=== PATIENT | female | born 1950 | race Caucasian/White ===

== ENCOUNTER → 2017-03-21 | Outpatient (CLI) | payer MEDICARE, MEDICAID ==
--- NOTE | 2017-03-21 13:26 | WOMENS IMAGING REPORT ---
EXAM DESCRIPTION: BILAT SCREENING MAMMO W/CAD COMPLETED DATE/TIME: 03/21/2017 9:44 am REASON FOR STUDY: ROUTINE SCREENING; Z12.31 Z12.31 ENCNTR SCREEN MAMMOGRAM FOR MALIGNANT NEOPLASM O F JOSEFA COMPARISON: None. TECHNIQUE: Standard craniocaudal and mediolateral oblique views of each breast recorded using Godengoa l acquisition. LIMITATIONS: None. FINDINGS: No masses, calcifications or architectural distortion. No areas of suspicion. Read with the assistance of CAD. .[facility] - R2 Cenova Version 1.3 .[facility] Imaging - R2 Cenova Version 1.3 .[facility] Imaging - R2 Cenova Version 2.4 .[facility] - R2 Cenova Version 2.4 .[facility] - R2 Deck Lid Fitter Version 9.2 IMPRESSION: NORMAL MAMMOGRAM. BIRADS 1. BREAST DENSITY: b. There are scattered areas of fibroglandular density. BIRAD: 1 NEGATIVE RECOMMENDATION: ROUTINE SCREENING COMMENT: The patient has been notified of the results by letter per SA requirements. Additional no tification policies are in place for contacting patient with suspicious or incomplete findings. Quality ID #[id number]: The [place] [employer] recommends an annual screening mammogram for women aged 40 years or over. This facility utilizes a reminder system to ensure that all patients receive reminder letters, and/or direct phone calls for appointments. This includes reminders for routine scr eening mammograms, diagnostic mammograms, or other Breast Imaging Interventions when appropriate. Th is patient will be placed in the appropriate reminder system. The [place] [employer] (ACR) has developed recommendations for screening MRI of the breast s in certain patient populations, to be used in conjunction with mammography. Breast MRI surveillanc e may be appropriate for women with more than 20% lifetime risk of developing breast cancer as deter mined by genetic testing, significant family history of the disease, or history of mantle radiation f or Hodgkins Disease. ACR Practice Guidelines 2008. TECHNICAL DOCUMENTATION: FINDING NUMBER: (1) ASSESSMENT: (1) JOB ID: [id number] [employer]- All Rights Reserved
== END ==
LOC: WI 09:29
PROVIDERS: ATTEND Family Medicine
DX: Z12.31 Encounter for screening mammogram for malignant neoplasm of breast (principal)
CPT/HCPCS: 77067; G0202

== ENCOUNTER → 2018-03-30 | Outpatient (CLI) | payer MEDICARE, MEDICAID ==
--- NOTE | 2018-03-30 15:51 | WOMENS IMAGING REPORT ---
EXAM DESCRIPTION: 3D SCREENING MAMMO BILAT COMPLETED DATE/TIME: 03/30/2018 2:28 pm REASON FOR STUDY: SCREENING MAMMO Z12.31 ENCNTR SCREEN MAMMOGRAM FOR MALIGNANT NEOPLASM OF JOSEFA COMPARISON: 03/21/2017 TECHNIQUE: Standard craniocaudal and mediolateral oblique views of each breast recorded using digita l acquisition and breast tomosynthesis. LIMITATIONS: None. FINDINGS: No masses, calcifications or architectural distortion. No areas of suspicion. Read with the assistance of CAD. .[facility] - R[facility] Cenova Version 1.3 .[facility] Imaging - R2 Cenova Version 1.3 .[facility] Imaging - R2 Cenova Version 2.4 .[facility] - R2 Cenova Version 2.4 .[facility] - R2 Costume Shop Manager Version 9.2 IMPRESSION: NORMAL MAMMOGRAM. BIRADS 1. BREAST DENSITY: b. There are scattered areas of fibroglandular density. BIRAD: 1 NEGATIVE RECOMMENDATION: ROUTINE SCREENING Please continue yearly bilateral screening tomosynthesis in March 2019 COMMENT: The patient has been notified of the results by letter per SA requirements. Additional no tification policies are in place for contacting patient with suspicious or incomplete findings. Quality ID #[id number]: The [employer] [employer] recommends an annual screening mammogram for women aged 40 years or over. This facility utilizes a reminder system to ensure that all patients receive reminder letters, and/or direct phone calls for appointments. This includes reminders for routine scr eening mammograms, diagnostic mammograms, or other Breast Imaging Interventions when appropriate. Th is patient will be placed in the appropriate reminder system. The [place] [employer] (ACR) has developed recommendations for screening MRI of the breast s in certain patient populations, to be used in conjunction with mammography. Breast MRI surveillanc e may be appropriate for women with more than 20% lifetime risk of developing breast cancer as deter mined by genetic testing, significant family history of the disease, or history of mantle radiation f or Hodgkins Disease. ACR Practice Guidelines 2008. DBT Technology DBT is a type of tomographic mammography. With conventional mammography, overlapping breast tissue ma y make lesions difficult to detect, even with good compression. DBT uses an x-ray tube that rotates a round the breast, taking images at different angles. These images are then combined to create thin sl ices of the breast that the radiologist can view as a 3D reconstruction. The [place] unit can perform full-field digital mammograms (2D imaging); or DBT (3D imaging); or both, in a combination mode that quickly performs both the mammogram and the tomosynthesis scan while the breast is still compressed. PQRS 6045F: Fluoroscopic imaging is not utilized for breast tomosynthesis. TECHNICAL DOCUMENTATION: FINDING NUMBER: (1) ASSESSMENT: (1) JOB ID: [id number] [employer]- All Rights Reserved Reading location - IP/workstation name: [facility]-RR2
== END ==
LOC: WI 13:34
PROVIDERS: ATTEND Family Medicine
DX: Z12.31 Encounter for screening mammogram for malignant neoplasm of breast (principal)
CPT/HCPCS: 77063; 77067

== ENCOUNTER 2019-10-14 06:22 | Day surgery (SDC) | payer MEDICARE, MEDICAID ==
[~2019-10-14 06:22] MED LIST: BUPIVACAINE HCL 0.75% INJ/PF (7.5 MG/1 ML) 10 ML SDV OD PRN; DORZOLAMIDE HCL 2%/TIMOLOL MALEAT 0.5% OPH SOLN 10 ML OD PRN; KETOROLAC TROMETHAMINE 0.45% 4 DROP/0.4 ML DROPERETTE OD PRN; LIDOCAINE 4% INJ/PF (40 MG/ML) 5 ML AMPUL OD PRN; TETRACAINE HCL 0.5% OPH SOLN 0.6 ML DROPERETTE OD PRN
[2019-10-14] MEDS ORDERED: LIDOCAINE 1% INJ-PF (10 MG/ML) 30 ML SDV ONE (06:57)
[2019-10-14] MEDS ORDERED: ONDANSETRON HCL INJ/PF 4 MG/2 ML SDV ONE (07:00)
[2019-10-14] MEDS ORDERED: MIDAZOLAM 2 MG/2 ML INJ ONE (07:00)
[2019-10-14] MEDS ORDERED: FENTANYL CITRATE INJ/PF 100 MCG/2 ML AMPUL ONE (07:00)
[2019-10-14] MEDS: TETRACAINE HCL 0.5% OPH SOLN 4 ML OD PRN ×2 (07:06→07:27)
[2019-10-14] MEDS: CYCLOPENTOLATE 0.2%/PHENYLEPHRINE 1% OPH SOLN 2 ML OD PRN ×3 (07:07→07:26)
[2019-10-14] MEDS: BESIFLOXACIN HCL 0.6% OPH SUSP 5 ML BOTTLE OD PRN ×4 (07:07→07:59)
[2019-10-14] MEDS: TROPICAMIDE 1% OPH SOLN 15 ML OD PRN ×3 (07:07→07:26)
[2019-10-14] MEDS: CHONDR SU A NA/HYALUR INTRAOC KIT (SURGICARE) ONE ×2 (07:45)
[2019-10-14] MEDS: EPINEPHRINE INJ/PF 1 MG/1 ML AMPULE ONE ×2 (07:45)
--- NOTE | 2019-10-14 10:58 | Operative Report ---
Operative Report-[facility] Operative Report: DATE OF SURGERY: 10/14/2019 PREOPERATIVE DIAGNOSIS: CATARACT, RIGHT EYE. POSTOPERATIVE DIAGNOSIS: CATARACT, RIGHT EYE. PROCEDURE PERFORMED: PHACOEMULSIFICATION WITH POSTERIOR CHAMBER INTRAOCULAR LENS, RIGHT EYE. Intraocular Lens Model : SN 60 WF 19.5 Total Phaco Time: 9.77 CDE SURGEON: BHARATHI GRANT MD ANESTHESIA: TOPICAL WITH MAC. INDICATIONS FOR SURGERY: Difficulty reading road signs and small print. PROCEDURE: The patient was brought to the Operating Room and placed on the operative table. Following tetracaine drops, topical anesthesia was administered. This consisted of instrument wipe pledgets soaked in a solution of 4% Xylocaine mixed with 0.75% Marcaine in a 1:2 ratio. A 2 x 1 cm pledget was placed in the superior fornix. A 1 x 1 cm pledget was placed in the inferior fornix. The eye was patched shut for 5 minutes. The patch was removed. The eye was sterilely prepped and draped in the usual manner. Lid speculum was placed in the eye. The pledgets were removed. 4-0 black silk sutures were placed around the superior and the inferior rectus muscles to be used as traction. A conjunctival peritomy was made at the 10 o'clock position. Hemostasis was obtained with bipolar cautery. A posterior limbal groove was created using a crescent knife and dissected anteriorly towards the cornea. A sharp point blade was used to create a paracentesis site at the 2 o'clock position. 0.2 cc non preserved Lidocaine was injected into the anterior chamber. A 2.4 mm keratome was used to enter the anterior chamber through the groove. Viscoelastic was injected into the anterior chamber. An anterior capsulotomy was performed using Utrata forceps in a capsulorrhexis fashion. Hydrodissection and hydrodelineation were performed. Phacoemulsification was performed in [id number] technique. Following this, the I/A unit was used to remove residual cortex. Viscoelastic was injected into the capsular bag. The Intraocular lens was placed in the capsular bag. The I/A unit was used to remove residual viscoelastic. The wound was seen to be watertight under high and low pressure, and no sutures were placed. The intraocular lens was well centered. The pressure was adjusted in the eye to normal pressure. The 4-0 black silk sutures and lid speculum were removed. The eye was shielded after Besivance. prednisolone, and Cosopt drops were placed. The patient tolerated the procedure well and was sent to the Recovery Room in good condition.
== END 2019-10-14 08:39 | disposition home or self-care (01) ==
LOC: SC 06:22
PROVIDERS: ATTEND Ophthalmology
DX: H25.813 Combined forms of age-related cataract, bilateral (principal); E05.90 Thyrotoxicosis, unspecified without thyrotoxic crisis or storm; J45.909 Unspecified asthma, uncomplicated; Z87.891 Personal history of nicotine dependence; Z88.0 Allergy status to penicillin; Z88.2 Allergy status to sulfonamides; Z91.040 Latex allergy status; Z79.51 Long term (current) use of inhaled steroids
CPT/HCPCS: 66984; 00142; V2632; J2250; J3490 ×5; A9270; J0171; J3010; J2405; 142

== ENCOUNTER → 2019-11-02 | Outpatient (CLI) | payer MEDICARE, MEDICAID ==
--- NOTE | 2019-11-02 15:01 | WOMENS IMAGING REPORT ---
EXAM DESCRIPTION: BONE DENSITY HIP/SPINE COMPLETED DATE/TIME: 11/02/2019 1:46 pm REASON FOR STUDY: M81.8 OTHER OSTEOPOROSIS WITHOUT CURRENT PATHOLOGICAL FRACTURE Z12.31 ENCNTR SCRE EN MAMMOGRAM FOR MALIGNANT NEOPLASM OF JOSEFA Z78.0 ASYMPTOMATIC MENOPAUSAL STATE M81.8 OTHER OSTEOPOR OSIS WITHOUT CURRENT PATHOLOGICAL FRACTU COMPARISON: None. TECHNIQUE: Dual-Energy X-ray Absorptiometry (DEXA) of the AP Spine and Hip. LIMITATIONS: None. FINDINGS: LUMBAR SPINE: The bone mineral density (BMD) measured from L1-L4 in the AP projection correlates with a T-score of -2.3, which is osteopenia as defined by the World Health Organization. BMD Change vs Baseline: N/A HIP: The bone mineral density (BMD) measured in the left hip correlates with a T-score of -1.3 in the femo ral neck, which is osteopenia as defined by the World Health Organization. BMD Change vs Baseline: N/A 10 year Fracture Risk Assessment: Major Osteoporotic Fracture: 9% Hip Fracture: 1.1% IMPRESSION: 1. LUMBAR SPINE WHO CLASSIFICATION: Osteopenia 2. HIP WHO CLASSIFICATION: Osteopenia OVERALL ASSESSMENT: WHO CLASSIFICATION: Osteopenia COMMENT: The World Health Organization defines low BMD as follows: T-score: Normal: Greater than -1.0 Osteopenia: Between -1.0 and -2.5 Osteoporosis: Less than -2.5 without fractures Established osteoporosis: Less than -2.5 with fractures In general, you may wish to consider: Diagnosis Treatment Follow-up DEXA Normal BMD Prevention 2-3 years Osteopenia Prevention/Therapy 1-2 years Osteoporosis Therapy Yearly TECHNICAL DOCUMENTATION: JOB ID: [id number] [employer]- All Rights Reserved Reading location - IP/workstation name: [email or web address]
--- NOTE | 2019-11-02 17:24 | WOMENS IMAGING REPORT ---
EXAM DESCRIPTION: BILAT SCREENING MAMMO W/CAD COMPLETED DATE/TIME: 11/02/2019 1:44 pm REASON FOR STUDY: Z12.31 ENCOUNTER FOR SCREENING MAMMOGRAM FOR MALIGNANT NEOPLASM OF BREAST Z12.31 ENCNTR SCREEN MAMMOGRAM FOR MALIGNANT NEOPLASM OF JOSEFA Z78.0 ASYMPTOMATIC MENOPAUSAL STATE M81.8 OTH ER OSTEOPOROSIS WITHOUT CURRENT PATHOLOGICAL FRACTU COMPARISON: 2016, 2017 EXAM PARAMETERS: Standard craniocaudal and mediolateral oblique views of each breast recorded using digital acquisition. Read with the assistance of CAD. .[facility] - R2 Freight Inspector Version 9.2 LIMITATIONS: None. FINDINGS: No suspicious masses, suspicious calcifications or architectural distortion. No areas of c oncern. IMPRESSION: Negative MAMMOGRAM. BIRADS 1 BREAST DENSITY: b. There are scattered areas of fibroglandular density. BIRAD: ASSESSMENT: 1 NEGATIVE RECOMMENDATION: ROUTINE SCREENING Please continue yearly bilateral screening mammography/tomosynthesis in October 2020 COMMENT: The patient has been notified of the results by letter per SA requirements. Additional no tification policies are in place for contacting patient with suspicious or incomplete findings. Quality ID #[id number]: The [place] [employer] recommends an annual screening mammogram for women aged 40 years or over. This facility utilizes a reminder system to ensure that all patients receive reminder letters, and/or direct phone calls for appointments. This includes reminders for routine scr eening mammograms, diagnostic mammograms, or other Breast Imaging Interventions when appropriate. Th is patient will be placed in the appropriate reminder system. TECHNICAL DOCUMENTATION: FINDING NUMBER: (1) ASSESSMENT: (1) JOB ID: [id number] 2010 [employer]- All Rights Reserved Reading location - IP/workstation name: [email or web address]
== END ==
LOC: WI 12:51
PROVIDERS: ATTEND Family Medicine
DX: Z12.31 Encounter for screening mammogram for malignant neoplasm of breast (principal); M81.8 Other osteoporosis without current pathological fracture
CPT/HCPCS: 77067; 77080

== ENCOUNTER 2020-03-10 10:51 | Observation (INO) | payer MEDICARE, MEDICAID ==
--- NOTE | 2020-03-10 10:59 | ER Document Report ---
ED Medical Screen (RME) - General Chief Complaint: S/S of Possible Stroke Stated Complaint: POSSIBLE STROKE Time Seen by Provider: 03/10/20 10:55 Primary Care Provider: SONG VILLELA MD [Primary Care Provider] - Follow up as needed Mode of Arrival: Wheelchair Information source: Parent Notes: 69-year-old female presented to ED for altered mental status. Daughter states that she was her normal self yesterday afternoon and then last night she was slurring her speech she had numbness to her left side of her face and tongue and was not able to hold stuff in her left hand without dropping it. She states she was not able to go up and down the stairs yesterday or this morning. Daughter was concerned when she could not go up and down the stairs again this morning. She is better than she was last night but still not to her normal self. In the triage she has no palmar drift no facial droop is able to say Geoff Mitchell picked a perez of pickle peppers. She has equal strength in left and right arm both of which are weak but appropriate for her age. I have greeted and performed a rapid initial assessment of this patient. A comprehensive ED assessment and evaluation of the patient, analysis of test results and completion of medical decision making process will be conducted by an additional ED providers. TRAVEL OUTSIDE OF THE [place] IN LAST 30 DAYS: No - Related Data Allergies/Adverse Reactions: Penicillins Allergy (Intermediate, Verified 03/10/20 10:55) Sulfa (Sulfonamide Antibiotics) Allergy (Intermediate, Verified 03/10/20 10:55) latex Allergy (Verified 03/10/20 10:55) silicone Allergy (Verified 03/10/20 10:55) Past Medical History - Past Medical History Cardiac Medical History: Denies: Hx Heart Attack, Hx Hypertension Pulmonary Medical History: Reports: Hx Asthma Neurological Medical History: Denies: Hx Cerebrovascular Accident, Hx Seizures GI Medical History: Denies: Hx Hepatitis, Hx Hiatal Hernia, Hx Ulcer Infectious Medical History: Denies: Hx Hepatitis Past Surgical History: Reports: Hx Hysterectomy. Denies: Hx Mastectomy, Hx Open Heart Surgery, Hx Pacemaker Doctor's Discharge - Discharge Referrals: SONG VILLELA MD [Primary Care Provider] - Follow up as needed
--- NOTE | 2020-03-10 11:37 | RADIOLOGY REPORT (SQ) ---
EXAM DESCRIPTION: CT HEAD WITHOUT IMAGES COMPLETED DATE/TIME: 03/10/2020 11:25 am REASON FOR STUDY: Altered mental status possible TIA COMPARISON: None. TECHNIQUE: Axial images acquired through the brain without intravenous contrast. Images reviewed wi th bone, brain and subdural windows. Additional sagittal and coronal reconstructions were generated. Images stored on PACS. All CT scanners at this facility use dose modulation, iterative reconstruction, and/or weight based d osing when appropriate to reduce radiation dose to as low as reasonably achievable (ALARA). [facility]: Dose Right [facility]: CareDose [facility]: Dose Right [facility]: Teradose 4D [facility]: [employer] RADIATION DOSE: CT Rad equipment meets quality standard of care and radiation dose reduction techniq ues were employed. CTDIvol: 53.2 mGy. DLP: 937 mGy-cm. mGy. LIMITATIONS: None. FINDINGS: VENTRICLES: Prominent. CEREBRUM: No masses. No hemorrhage. No midline shift. Areas of low density in the white matter mos t likely due to chronic micro-vascular ischemic change. No evidence for acute infarction. CEREBELLUM: No masses. No hemorrhage. No alteration of density. No evidence for acute infarction. EXTRAAXIAL SPACES: Mild age-related involutional change. No fluid collections. No masses. ORBITS AND GLOBE: No intra- or extraconal masses. Normal contour of globe without masses. CALVARIUM: No fracture. PARANASAL SINUSES: Postsurgical changes. No mucosal thickening or air-fluid levels. SOFT TISSUES: No mass or hematoma. OTHER: No other significant finding. IMPRESSION: MILD CHRONIC CHANGES OF ATROPHY AND MICROVASCULAR ISCHEMIA. NO ACUTE PROCESS. EVIDENCE OF ACUTE STROKE: NO. COMMENT: Pertinent positive or negative findings of the imaging study reported as a CRITICAL EXAM duke HIGGINS NP at11:28 on 03/10/2020. Category of Critical Exam: Code stroke TECHNICAL DOCUMENTATION: JOB ID: [id number] Quality ID # [id number]: Final reports with documentation of one or more dose reduction techniques (e.g., Au tomated exposure control, adjustment of the mA and/or kV according to patient size, use of iterative reconstruction technique) 2010 [employer]- All Rights Reserved Reading location - IP/workstation name: [facility]
[2020-03-10 11:48] LABS: ABSOLUTE BASOPHILS # (AUTO) 0.1 10^3/uL (0.0-0.2); ABSOLUTE EOSINOPHILS # (AUTO) 0.1 10^3/uL (0.0-0.6); ABSOLUTE MONOCYTES (AUTO) 0.5 10^3/uL (0.1-1.4); ABSOLUTE NEUT (AUTO) 7.4 10^3/uL (1.7-8.2); BASOPHILS % (AUTO) 0.9 % (0-2); EOSINOPHILS % (AUTO) 0.9 % (0-6); HEMATOCRIT 39.8 % (36.0-47.0); HEMOGLOBIN 13.7 g/dL (12.0-15.5); LYMPHOCYTES % (AUTO) 10.7 % (13-45); MEAN CORPUSCULAR HEMOGLOBIN 33.5 pg (27.0-33.4); MEAN CORPUSCULAR HGB CONC 34.4 g/dL (32.0-36.0); MEAN CORPUSCULAR VOLUME 97 fl (80-97); MONOCYTES % (AUTO) 5.4 % (3-13); PLATELET COUNT 308 10^3/uL (150-450); RED BLOOD COUNT 4.09 10^6/uL (3.72-5.28); RED CELL DISTRIBUTION WIDTH 13.7 % (11.5-14.0); SEGMENTED NEUTROPHILS % (AUTO) 82.1 % (42-78); TOTAL CELLS COUNTED % (AUTO) 100 %; WHITE BLOOD COUNT 9.1 10^3/uL (4.0-10.5)
[2020-03-10 11:54] LABS: PARTIAL THROMBOPLASTIN TIME 27.2 SEC (23.5-35.8); PROTHROMBIN TIME 13.2 SEC (11.4-15.4)
[2020-03-10 11:55] LABS: APPEARANCE,URINE SLIGHTLY-CLOUDY; BILIRUBIN,URINE NEGATIVE (NEGATIVE); COLOR,URINE YELLOW; GLUCOSE, URINE NEGATIVE (NEGATIVE); KETONES,URINE NEGATIVE (NEGATIVE); LEUKOCYTE ESTERASE,URINE LARGE (NEGATIVE); NITRITE,URINE NEGATIVE (NEGATIVE); PROTEIN,URINE NEGATIVE (NEGATIVE); URINE SPECIFIC GRAVITY 1.012; UROBILINOGEN,URINE NEGATIVE mg/dL (<2.0)
[2020-03-10 12:11] LABS: ALBUMIN 4.3 g/dL (3.5-5.0); ALKALINE PHOSPHATASE 97 U/L (38-126); ANION GAP 5 (5-19); ASPARTATE AMINO TRANSFERASE 36 U/L (14-36); BILIRUBIN,TOTAL 0.7 mg/dL (0.2-1.3); BLOOD UREA NITROGEN 16 mg/dL (7-20); CALCIUM 9.3 mg/dL (8.4-10.2); CARBON DIOXIDE 27 mmol/L (22-30); CHLORIDE 104 mmol/L (98-107); GLUCOSE 119 mg/dL (75-110); TOTAL PROTEIN 7.8 g/dL (6.3-8.2)
[2020-03-10] MEDS ORDERED: ASPIRIN 325 MG TABLET PO ONE (12:12)
--- NOTE | 2020-03-10 12:59 | EKG REPORT ---
SEVERITY:- ABNORMAL ECG - SINUS RHYTHM PROBABLE LEFT ATRIAL ABNORMALITY LVH WITH SECONDARY REPOLARIZATION ABNORMALITY : Confirmed by: Rodrigue Mcknight MD 10-Mar-2020 12:58:48
--- NOTE | 2020-03-10 14:14 | RADIOLOGY REPORT (SQ) ---
EXAM DESCRIPTION: CTA NECK IMAGES COMPLETED DATE/TIME: 03/10/2020 12:45 pm REASON FOR STUDY: Stroke symptoms COMPARISON: None. TECHNIQUE: Axial dynamic scanning technique with dynamic contrast enhancement through the extra-stock crane operator nial carotid and vertebral arteries. Multiplanar reconstruction. 3-D MIPS and Volume-rendered imag es acquired at the workstation and saved to PACS. Images are reviewed in soft tissue, bone, lung w indows. All CT scanners at this facility use dose modulation, iterative reconstruction, and/or weight based d osing when appropriate to reduce radiation dose to as low as reasonably achievable (ALARA). [facility]: Dose Right [facility]: CareDose [facility]: Dose Right [facility]: Teradose 4D [facility]: BioArray CONTRAST TYPE AND DOSE: 75 mL Omnipaque 350 RENAL FUNCTION: BUN 16, creatinine 0.83 LIMITATIONS: None. FINDINGS: AORTIC ARCH: There is aberrant origin of the right subclavian artery. This arises from wh at appears to be a ductus diverticulum. The right subclavian artery is the 4th branch off of the aor ta. It passes posterior to the trachea and esophagus. No ostial stenosis at the great vessel origin s. RIGHT CAROTIDS: Patent common, internal and external carotid arteries without suggestion of significa nt stenosis or irregular plaque. No dissection. RIGHT VERTEBRAL: Patent. No dissection. LEFT CAROTIDS: Patent common, internal and external carotid arteries without suggestion of significan t stenosis or irregular plaque. No dissection. LEFT VERTEBRAL: Patent. No dissection. OTHER: No other significant finding. OTHER: 3-D reconstructions confirm findings. IMPRESSION: 1. Widely patent right and left common and internal carotid arteries. 2. 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 COMMENT: Quality ID #[id number]: Measurements of distal internal carotid diameter were used as the denomina tor for stenosis measurement. TECHNICAL DOCUMENTATION: JOB ID: [id number] Quality ID # [id number]: Final reports with documentation of one or more dose reduction techniques (e.g., Au tomated exposure control, adjustment of the mA and/or kV according to patient size, use of iterative reconstruction technique) 2010 [employer]- All Rights Reserved Reading location - IP/workstation name: [facility]-
--- NOTE | 2020-03-10 14:15 | RADIOLOGY REPORT (SQ) ---
EXAM DESCRIPTION: CTA HEAD IMAGES COMPLETED DATE/TIME: 03/10/2020 12:45 pm REASON FOR STUDY: Stroke symptoms COMPARISON: None. TECHNIQUE: Post IV contrast scanning, thin section axial imaging through the brain to evaluate the a rterial structures. Source and MIP images are saved and reviewed on PACS. Advanced 3D imaging as volume-rendering, MIPs, SSD performed? yes All CT scanners at this facility use dose modulation, iterative reconstruction, and/or weight based d osing when appropriate to reduce radiation dose to as low as reasonably achievable (ALARA). [facility]: Dose Right [facility]: CareDose [facility]: Dose Right [facility]: Teradose 4D [facility]: [employer] CONTRAST TYPE AND DOSE: 75 mL Omnipaque 350 RENAL FUNCTION: BUN 16, creatinine 0.83 LIMITATIONS: None. FINDINGS: [place] OF [place]: The anterior, middle, posterior cerebral arteries are all patent. No ev idence of aneurysm or focal stenosis. POSTERIOR CIRCULATION: The distal vertebral arteries are patent as is the basilar artery. No aneurysm . BRAIN: No gross enhancing lesions as visualized. The superior cerebral hemispheres are not included in the field of view. BONES: Intact as visualized. SINUSES: No fluid or mucosal thickening. OTHER: No other significant finding. IMPRESSION: NO CTA EVIDENCE OF STENOSIS OR ANEURYSM OF THE KALTAG OF HERNANDEZ. TECHNICAL DOCUMENTATION: JOB ID: [id number] Quality ID # [id number]: Final reports with documentation of one or more dose reduction techniques (e.g., Au tomated exposure control, adjustment of the mA and/or kV according to patient size, use of iterative reconstruction technique) 2010 [employer]- All Rights Reserved Reading location - IP/workstation name: [email or web address]
--- NOTE | 2020-03-10 14:42 | ER Document Report ---
ED Neuro Symptoms/Deficit - General Chief Complaint: S/S of Possible Stroke Stated Complaint: POSSIBLE STROKE Time Seen by Provider: 03/10/20 10:55 Mode of Arrival: Wheelchair Notes: 69-year-old woman presents to the emergency department with a complaint of strokelike symptoms which began yesterday. She states that she began having symptoms sometime in late afternoon. Daughter notes that her symptoms were noted at about 9:30 last night. The patient complained of weakness in the left upper and left lower extremities with some speech slurring. She denied facial droop, does complain of some numbness in the left side of the face. He denies a prior history of CVA, she denies hypertension, diabetes, or known vascular disease. TRAVEL OUTSIDE OF THE [place] IN LAST 30 DAYS: No - Related Data Allergies/Adverse Reactions: Penicillins Allergy (Intermediate, Verified 03/10/20 10:55) Sulfa (Sulfonamide Antibiotics) Allergy (Intermediate, Verified 03/10/20 10:55) latex Allergy (Verified 03/10/20 10:55) silicone Allergy (Verified 03/10/20 10:55) Home Medications: Levothyroxine, Ventolin, Methotrexate, Alendronate Past Medical History - General Information source: Parent - Social History Smoking Status: Former Smoker Family History: Reviewed & Not Pertinent - Past Medical History Cardiac Medical History: Denies: Hx Heart Attack, Hx Hypertension Pulmonary Medical History: Reports: Hx Asthma Neurological Medical History: Denies: Hx Cerebrovascular Accident, Hx Seizures GI Medical History: Denies: Hx Hepatitis, Hx Hiatal Hernia, Hx Ulcer Infectious Medical History: Denies: Hx Hepatitis Past Surgical History: Reports: Hx Hysterectomy. Denies: Hx Mastectomy, Hx Open Heart Surgery, Hx Pacemaker Review of Systems - Review of Systems Notes: Constitutional: Negative for fever. HENT: Negative for sore throat. Eyes: Negative for visual changes. Cardiovascular: Negative for chest pain. Respiratory: Negative for shortness of breath. Gastrointestinal: Negative for abdominal pain, vomiting or diarrhea. Genitourinary: Negative for dysuria. Musculoskeletal: Negative for back pain. Skin: Negative for rash. Neurological: See HPI 10 point ROS negative except as marked above and in HPI. Physical Exam - Vital signs Vitals: Pulse Resp BP Pulse Ox 69 16 120/80 96 03/10/20 10:52 03/10/20 10:52 03/10/20 10:52 03/10/20 10:52 - Notes Notes: PHYSICAL EXAMINATION: Physical Exam: General: Well-nourished well-developed 69-year-old woman in no acute distress HEENT: NC/AT, pupils equal round and reactive to light, MM moist,nares clear, oropharynx clear, airway patent Neck: supple, no adenopathy, no masses. Good range of motion Lungs: clear, no wheezing, no rales no rhonchi CVS: Regular rate and rhythm no murmur gallop or rub Abdomen: Soft, active, nontender, no masses, no hepatosplenomegaly Ext: No edema, clubbing or cyanosis. Neuro: Alert and responsive, + mild weakness left side 4/5, left leg with good strength, poor cerebellar testing with [id number] involving the left hand, [id number] left greater than right. Skin: Intact no open lesions, no rash PSYCH: Normal mood, normal affect. NIH stroke score: 5, facial palsy, left upper extremity ataxia, facial numbness, mild slurring of words. Course - Re-evaluation Re-evalutation: 03/10/20 14:42 Patient presents with stroke symptoms greater than 12 hours duration, she is not a candidate for TPA based upon the duration of her symptoms. CT and CTA brain and CTA neck are negative. Patient has continued symptoms. I discussed the findings with the patient and family and explained that there are some other tests that need to be done to evaluate her risk for continued or worsening stroke symptoms. She was given aspirin 325 mg in the emergency department. The patient and her daughter are in agreement with this plan. 03/10/20 14:59 I discussed the patient with the hospitalist, the patient will be brought into the hospital for further evaluation and treatment. - Vital Signs Vital signs: Temp Pulse Resp BP Pulse Ox 98.5 F 69 16 120/80 96 03/10/20 10:58 03/10/20 11:37 03/10/20 11:37 03/10/20 11:37 03/10/20 11:37 - Laboratory Result Diagrams: 03/10/20 11:20 03/10/20 11:20 Laboratory results interpreted by me: 03/10/20 03/10/20 03/10/20 11:20 11:20 11:20 MCH 33.5 H Lymph % (Auto) 10.7 L Seg Neutrophils % 82.1 H Sodium 135.8 L Glucose 119 H Ur Leukocyte Esterase LARGE H - Diagnostic Test Radiology reviewed: Image reviewed, Reports reviewed Radiology results interpreted by me: 03/10/20 14:58 CT head: No acute intracranial hemorrhage, no acute stroke findings. CTA head: No large vessel obstruction. CTA neck: No evidence of stenosis with wide open flow left common carotid and internal carotid arteries. - EKG Interpretation by Me EKG shows normal: Sinus rhythm, QRS Complexes - LVH with repolarization abnormality, ST-T Waves - No acute ST or T wave abnormalities seen. Rate: Normal - 70 P Waves: Other - Left atrial abnormality Critical Care Note - Critical Care Note Total time excluding time spent on procedures (mins): 45 - Critical care time spent obtaining history from patient or surrogate, discussions with consultants, development of treatment plan with patient or surrogate, evaluation of patient's response to treatment, examination of patient, ordering and performing treatments and interventions, ordering and review of laboratory studies, re-evaluation of patient's condition, ordering and review of radiographic studies and review of old charts ED Alteplase Inc/Exc Criteria - Date/Time patient last known well: Date/Time: 03/09/2020 21:30 - Date/Time patient arrived in ED: _: 03/10/2020 10:50 - Inclusion Criteria: 1: Patient presented to ED within 3 hours of acute ischemic stroke symptom onset? -: No - approximately 11 hours after symptoms. 2: Did baseline CT exclude intracranial hemorrhage and/or other risk factors? -: Yes 3: Is the age of the patient 18 years of age or greater? -: Yes : If any of the above questions are answered "NO" then stop, patient is not a candidate for Alteplase, : If all of the above questions are answered "YES" then continue with Exclusion Criteria. - Exclusion Criteria: 1: Is there evidence of intracranial hemorrhage on baseline CT? 2: Is there suspicion of subarachnoid hemorrhage (even if CT negative)? 3: Is there a history of serious head trauma, recent previous stroke or SD within 3 months? 4: Does the patient have a clinical presentation consistent with SD or post-SD pericarditis? 5: Is there history of intracranial hemorrhage? 6: On repeated measurement is Systolic BP greater than 185mmHg or Diastolic BP greater that 110 mmHg and is aggressive treatment needed to reduce blood pressure to these limits (e.g. constant infusion of an anti-hypertensive)? 7: Did the patient awake with stroke symptoms? 8: Has the patient had a lumbar puncture or an arterial puncture at a non- compressile site within 7 days? 9: With in the last 14 days did the patient have surgery or major trauma? 10: Is the patient or less than 2 weeks? 11: Was there any active bleeding or acute trauma? 12: Does the patient have intracranial neoplasm, arteriovenous malformation or aneurysm? 13: Does the patient have abnormal glucose (less than 50 or greater than 400mg/dl)? Record glucose in Comment. 14: Patient has rapidly improving symptoms at the time Alteplase is to be Administered. 15: Does the patient have any risks for bleeding, including but not limited to: a.: Current use of Coumadin with PT greater than 15 seconds or INR greater than 1.7. b.: Current use of Pradaxa (Dabigatran). c.: Heparin administereed within the past 48 hours and PTT elevated. d.: Platelet count less than 100,000/mm. e.: Major surgery or serious trauma within 14 days. f.: Gastrointestinal or gynecological urinary bleeding within 14 days. g.: Myocardial Infarction (SD) within 3 months. : If the answer to any of the above questions is "YES" then stop, the patient is not a candidate for Alteplase. : If the answer to all of the above questions is "NO" then the patient may be eligible for the Administration of Alteplase. : If the patient is noted to have seizure activity at onset of Stroke symptoms; Consult Neurologist for further evaluation. - The patient is: -: Included and is eligible to receive Alteplase. *Initiate bed placement at higher level of care* Reviewed risks & benefits of thrombolytic therapy: I have reviewed the risks and benefits of thrombolytic therapy with the patient and/or his/her family. -: Excluded and not eligible to receive Alteplase for the above exclusions. -: Excluded and not eligible to receive Alteplase for other reasons (specify in comments): - Diagnosis of TIA: -: Patient presented with transient symptoms that are now resolved and no other neurologic findings are currently present. List symptoms in comments. -: Patient is NOT a candidate for tPA. -: ____(put name in comment) has been consulted for admission and continued evaluation of risk factor assessment. Discharge - Discharge Clinical Impression: CVA (cerebral vascular accident) Qualifiers: CVA mechanism: unspecified Qualified Code(s): I63.9 - Cerebral infarction, unspecified Condition: Good Disposition: ADMITTED INPATIENT Admitting Provider: Connie (Hospitalist) Unit Admitted: [facility]
[2020-03-10] MEDS ORDERED: ONDANSETRON HCL INJ/PF 4 MG/2 ML SDV IV PRN (15:11)
[2020-03-10] MEDS ORDERED: ACETAMINOPHEN 325 MG TABLET PO PRN (15:11)
[2020-03-10] MEDS ORDERED: DOCUSATE SODIUM 100 MG CAPSULE PO PRN (15:11)
[2020-03-10] MEDS ORDERED: MAG HYDROX/AL HYDROX/SIMETH SUSP 30 ML UDCUP PO PRN (16:45)
[2020-03-10] MEDS ORDERED: HYDRALAZINE HCL INJ/PF 20 MG/1 ML SDV IV PRN (16:46)
--- NOTE | 2020-03-10 16:50 | PDOC H&P ---
History of Present Illness Admission Date/PCP: 03/10/20 15:14 SONG VILLELA MD Patient complains of: left side paresthesia/weakness History of Present Illness: CJ MARIN is a 69 year old female with a past medical history significant for hypertension, hypothyroidism, rheumatoid arthritis, asthma who presented to the emergency department with a complaint of mild slurring of speech, left-sided oral paresthesia, left facial numbness, left upper and lower extremity intermittent numbness with poor coordination with onset prior to going to sleep last night (>18 hours ago). Evaluation in the emergency department revealed acceptable vital signs. Laboratory evaluation was unremarkable with essentially normal CBC, PT/INR, chemistry, and urinalysis. EKG showed normal sinus rhythm with LVH. Head CT revealed mild chronic changes of atrophy and microvascular ischemia without acute findings. Head CTA and neck CTA were benign; although noted to have an aberrant origin of the right subclavian artery. The patient is referred to the hospitalist service for further evaluation and management of the above-stated complaints and findings. Past Medical History Cardiac Medical History: Reports: Hypertension Denies: Congestive Heart Failure, Coronary Artery Disease, Myocardial Infarction, Hyperlipidema Pulmonary Medical History: Reports: Asthma EENT Medical History: Reports: None Neurological Medical History: Denies: Ischemic CVA, Seizures Endocrine Medical History: Reports: Hypothyroidism, Obesity Denies: Diabetes Mellitus Type 2 Renal/ Medical History: Reports: None Malignancy Medical History: Reports: None GI Medical History: Denies: Hepatitis, Hiatal Hernia Musculoskeltal Medical History: Reports: Arthritis - RA Skin Medical History: Reports: None Psychiatric Medical History: Reports: None Traumatic Medical History: Reports: None Hematology: Denies: Anemia, Sickle Cell Disease Past Surgical History Past Surgical History: Reports: Appendectomy, Cholecystectomy, Hysterectomy, Orthopedic Surgery Denies: Amputation, Mastectomy, Pacemaker Social History Information Source: Patient Lives with: Family Smoking Status: Former Smoker Electronic Cigarette use?: No Frequency of Alcohol Use: None Hx Recreational Drug Use: No Hx Prescription Drug Abuse: No - Advance Directive Resuscitation Status: Do Not Resuscitate Family History Family History: Reviewed & Not Pertinent Parental Family History Reviewed: Yes Children Family History Reviewed: Yes Sibling(s) Family History Reviewed.: Yes Medication/Allergy Home Medications: Albuterol Sulfate [Ventolin Hfa 8 gm Mdi (1 Mdi/ER Disp)] 2 puff IH ASDIR PRN 10/07/19 Bromfenac Sodium [Prolensa] 1.6 ml OP ASDIR PRN 10/07/19 Fluticasone/Vilanterol [Breo 100-25 Mcg Ellipta 14 Dose/Dpi] 1 inh IH DAILY 10/07/19 Folic Acid 1 mg PO DAILY 10/07/19 Levothyroxine Sodium [Levo-T] 125 mcg PO DAILY 10/07/19 Methotrexate [Xatmep] 2.5 mg PO ASDIR PRN 10/07/19 Montelukast Sodium [Singulair 10 mg Tablet] 10 mg PO QHS 10/07/19 Moxifloxacin HCl [Moxifloxacin] 1 drop OP ASDIR PRN 10/07/19 Prednisolone Acetate [Pred Forte] 1 ml OP ASDIR PRN 10/07/19 Prednisolone [Millipred] 5 mg PO DAILY 10/07/19 Allergies/Adverse Reactions: Penicillins Allergy (Intermediate, Verified 03/10/20 10:55) Sulfa (Sulfonamide Antibiotics) Allergy (Intermediate, Verified 03/10/20 10:55) latex Allergy (Verified 03/10/20 10:55) silicone Allergy (Verified 03/10/20 10:55) Review of Systems Constitutional: ABSENT: chills, fever(s), headache(s), weight gain, weight loss Eyes: ABSENT: visual disturbances Ears: ABSENT: hearing changes Cardiovascular: ABSENT: chest pain, dyspnea on exertion, edema, orthropnea, palpitations Respiratory: ABSENT: cough, hemoptysis Gastrointestinal: ABSENT: abdominal pain, constipation, diarrhea, hematemesis, hematochezia, nausea, vomiting Genitourinary: ABSENT: dysuria, hematuria Musculoskeletal: ABSENT: joint swelling Integumentary: ABSENT: rash, wounds Neurological: PRESENT: as per HPI, abnormal movements, abnormal speech, focal weakness, paresthesias. ABSENT: abnormal gait, confusion, dizziness, syncope Psychiatric: ABSENT: anxiety, depression, homidical ideation, suicidal ideation Endocrine: ABSENT: cold intolerance, heat intolerance, polydipsia, polyuria Hematologic/Lymphatic: ABSENT: easy bleeding, easy bruising Physical Exam Vital Signs: Temp Pulse Resp BP Pulse Ox 98.4 F 69 16 120/80 96 03/10/20 15:11 03/10/20 11:37 03/10/20 11:37 03/10/20 11:37 03/10/20 11:37 Intake & Output 03/09/20 03/10/20 03/11/20 06:59 06:59 06:59 Weight 82 kg General appearance: PRESENT: no acute distress, cooperative, obese, well- developed, well-nourished Head exam: PRESENT: atraumatic, normocephalic Eye exam: PRESENT: conjunctiva pink, EOMI, PERRLA. ABSENT: scleral icterus Mouth exam: PRESENT: moist, tongue midline Respiratory exam: PRESENT: clear to auscultation zulema, symmetrical, unlabored. ABSENT: rales, rhonchi, wheezes Cardiovascular exam: PRESENT: RRR, +S2. ABSENT: diastolic murmur, rubs, systolic murmur Pulses: PRESENT: normal dorsalis pedis pul Vascular exam: PRESENT: normal capillary refill GI/Abdominal exam: PRESENT: normal bowel sounds, soft. ABSENT: distended, guarding, mass, organolmegaly, rebound, tenderness Rectal exam: PRESENT: deferred Extremities exam: PRESENT: full ROM. ABSENT: calf tenderness, clubbing, pedal edema Neurological exam: PRESENT: alert, awake, oriented to person, oriented to place, oriented to time, oriented to situation, ataxia, CN II-XII grossly intact, motor sensory deficit - Muscle strength 5/5 bilaterally upper and lower extremities; though with ataxia to the left side, other - Faint slurring of speech Psychiatric exam: PRESENT: appropriate affect, normal mood. ABSENT: homicidal ideation, suicidal ideation Skin exam: PRESENT: dry, intact, warm. ABSENT: cyanosis, rash Results Laboratory Results: 03/10/20 11:20 03/10/20 11:20 03/10/20 03/10/20 03/10/20 11:20 11:20 11:20 WBC 9.1 RBC 4.09 Hgb 13.7 Hct 39.8 MCV 97 MCH 33.5 H MCHC 34.4 RDW 13.7 Plt Count 308 Seg Neutrophils % 82.1 H Sodium 135.8 L Potassium 5.0 Chloride 104 Carbon Dioxide 27 Anion Gap 5 BUN 16 Creatinine 0.83 Est GFR ( Amer) > 60 Glucose 119 H Calcium 9.3 Total Bilirubin 0.7 AST 36 Alkaline Phosphatase 97 Total Protein 7.8 Albumin 4.3 Urine Color YELLOW Urine Appearance SLIGHTLY-CLOUDY Urine pH 7.0 Ur Specific [place] 1.012 Urine Protein NEGATIVE Urine Glucose (UA) NEGATIVE Urine Ketones NEGATIVE Urine Blood NEGATIVE Urine Nitrite NEGATIVE Ur Leukocyte Esterase LARGE H Urine WBC (Auto) 15 Urine RBC (Auto) 1 Impressions: Head CT 03/10/20 10:59 IMPRESSION: MILD CHRONIC CHANGES OF ATROPHY AND MICROVASCULAR ISCHEMIA. NO ACUTE PROCESS. EVIDENCE OF ACUTE STROKE: NO. Head CTA 03/10/20 12:13 IMPRESSION: NO CTA EVIDENCE OF STENOSIS OR ANEURYSM OF THE [place] OF [place]. Neck CTA 03/10/20 12:13 IMPRESSION: 1. Widely patent right and left common and internal carotid arteries. 2. 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 Assessment and Plan - Diagnosis (1) CVA (cerebral vascular accident) Qualifiers: CVA mechanism: unspecified Qualified Code(s): I63.9 - Cerebral infarction, unspecified Is this a current diagnosis for this admission?: Yes Plan: CT head negative for acute findings. CTA head benign. CTA neck benign. Thyroid panel, lipid panel, A1c pending. Patient is admitted to [facility] on continuous cardiac telemetry. Plan for permissive hypertension. Daily aspirin, statin therapy. Start Plavix daily x3 weeks. Head MRI pending. Echocardiogram pending. PT/OT/ST consultation. Cardiac diet. (2) Hypertension Qualifiers: Hypertension type: essential hypertension Qualified Code(s): I10 - Essentia l (primary) hypertension Is this a current diagnosis for this admission?: Yes Plan: Allow permissive hypertension for another 24 hours. Resume home medication regiment once reconciled. IV hydralazine as needed for SBP>180, DBP>100 Cardiac diet. (3) Hypothyroidism Is this a current diagnosis for this admission?: Yes Plan: Check TSH with a.m. lab work. Continue home dose levothyroxine once reconciled. (4) Obesity (BMI 30.0-34.9) Is this a current diagnosis for this admission?: Yes Plan: Dietary discretion and lifestyle modification encouraged. Cardiac diet. - Time Time Spent with patient: 35 or more minutes Medications reviewed and adjusted accordingly: Yes Anticipated discharge: Home Within: within 24 hours
--- NOTE | 2020-03-10 17:42 | RADIOLOGY REPORT (SQ) ---
EXAM DESCRIPTION: MRI HEAD WITHOUT IMAGES COMPLETED DATE/TIME: 03/10/2020 4:33 pm REASON FOR STUDY: tia; slurred speack, left side weakness COMPARISON: None. TECHNIQUE: Multiplanar imaging includes non-contrasted T1, T2, FLAIR, and diffusion with ADC map seq uences. Images stored on PACS. LIMITATIONS: None. FINDINGS: ANATOMY: No anomalies. Normal vascular flow voids. Pituitary fossa normal. CSF SPACES: Normal in size and contour. No hemorrhage. CEREBRUM: Sulci and gyri normal in size and contour. Scattered small areas of increased white matter signal on FLAIR imaging. Acute/subacute lacunar infarction in the right thalamus. No evidence of h emorrhage, mass, or extraaxial fluid collection. POSTERIOR FOSSA: No signal alteration. No hemorrhage. No edema, masses or mass effect. Internal eve tory canals, cerebello-pontine angles, mastoids normal. DIFFUSION IMAGING: Acute/ subacute lacunar infarction in the right thalamus. ORBITS: No masses. Globes normal. PARANASAL SINUSES: No fluid levels. Mucosa normal. MASTOID AIR CELLS: There is fluid in the the right mastoid air cells. OTHER: No other significant finding. IMPRESSION: Acute/ subacute lacunar infarction in the right thalamus. Mild chronic microvascular is chemia. EVIDENCE OF ACUTE STROKE: Yes RIGHT MCA COMMENT: Pertinent findings on the imaging study reported as a CRITICAL RESULT to MELISSA Fernandez at17:35 on 03/10/2020. Category of Critical Result: Acute lacunar infarction. TECHNICAL DOCUMENTATION: JOB ID: [id number] [employer]- All Rights Reserved Reading location - IP/workstation name: [email or web address]
[2020-03-10] MEDS: FAMOTIDINE 20 MG TABLET PO SCH (21:38)
[2020-03-10] MEDS: HEPARIN SOD (PORCINE) 5,000 UNIT/ML 1 ML VIAL SUBCUT SCH (21:38)
[2020-03-10] MEDS ORDERED: ATORVASTATIN CALCIUM 80 MG TABLET PO SCH (22:00)
--- NOTE | 2020-03-11 01:01 | XCELERA REPORT ---
[address] [address] Transthoracic Echocardiogram Report Name: CJ MARIN Age: 69 yrs Gender: Female : 1950 Patient Status: Inpatient Patient Location: [address] [place] [address] Study Date: 03/10/2020 05:18 PM Height: 62 in Weight: 180 lb BSA: 1.8 m2 Procedure: A two-dimensional transthoracic echocardiogram with color flow and Doppler was performed. Study Quality: Poor. Reason For Study: TIA / CVA History: TIA / CVA. Ordering Physician: MELISSA WINN Performed By: Rajani Kahn Interpretation Summary There is no obvious cardiac source of embolus noted on this transthoracic echocardiogram. Follow-up with a SUZY is suggested if cardiac source is still suspected. The left ventricle is normal in size. There is normal left ventricular wall thickness. LV EF is > than 60% Left ventricular systolic function is normal. Doppler measurements suggest impaired left ventricular relaxation, which is associated with grade I/IV or mild diastolic dysfunction The left ventricular wall motion is normal. No thrombus,Cannot assess ASD ,VSD or PFO. The right ventricle is not well visualized secondary to technical limitations Right atrium not well visualized secondary to technical limitations The left atrial size is normal. There is no evidence of mitral valve prolapse. There is no vegetation seen on the mitral valve. Probably no Mitral Stenosis. There is no mitral regurgitation noted. There is no aortic valvular vegetation. There is aortic sclerosis without aortic stenosis. There is a trace amount of aortic regurgitation There is no tricuspid stenosis. There is a trace amount of tricuspid regurgitation Tricuspid regurgitation jet envelope not well defined to measure RV systolic pressure accurately. The pulmonic valve is not well visualized. The aortic root is not well visualized but is probably normal size. The inferior vena cava appeared normal and decreased > 50% with respiration (RAP 5-10 mmHg) There is no pericardial effusion. MMode/2D Measurements & Calculations RVDd: 2.4 cm LVIDd: 4.9 cm FS: 32.5 % Ao root diam: 2.9 cm IVSd: 1.0 cm LVIDs: 3.3 cm EDV(Teich): 111.5 ml Ao root area: 6.5 cm2 LVPWd: 1.0 cm ESV(Teich): 43.9 ml LA dimension: 2.1 cm EF(Teich): 60.6 % Doppler Measurements & Calculations MV E max miri: MV P1/2t max miri: Ao V2 max: AI max miri: 71.1 cm/sec 89.5 cm/sec 143.0 cm/sec 342.1 cm/sec MV A max miri: MV P1/2t: 104.1 msec Ao max PG: AI max P.2 cm/sec MVA(P1/2t): 2.1 cm2 8.2 mmHg 46.8 mmHg MV E/A: 0.70 MV dec slope: AI dec slope: 130.4 cm/sec2 251.9 cm/sec2 AI P1/2t: MV dec time: 768.1 msec 0.25 sec LV V1 max PG: PA V2 max: PI end-d miri: AV P1/2t-pr_phl: 7.4 mmHg 89.8 cm/sec 124.9 cm/sec 768.1 msec LV V1 max: PA max P.2 mmHg 135.7 cm/sec MV P1/2t-pr_phl: 104.1 msec Left Ventricle The left ventricle is normal in size. There is normal left ventricular wall thickness. LV EF is > than 60%. Left ventricular systolic function is normal. Doppler measurements suggest impaired left ventricular relaxation, which is associated with grade I/IV or mild diastolic dysfunction. The left ventricular wall motion is normal. No thrombus,Cannot assess ASD ,VSD or PFO. Right Ventricle The right ventricle is not well visualized secondary to technical limitations. Atria Right atrium not well visualized secondary to technical limitations. The left atrial size is normal. Mitral Valve There is no evidence of mitral valve prolapse. There is no vegetation seen on the mitral valve. Probably no Mitral Stenosis. There is no mitral regurgitation noted. Aortic Valve There is no aortic valvular vegetation. There is no aortic valve stenosis. There is aortic sclerosis without aortic stenosis. There is a trace amount of aortic regurgitation. Tricuspid Valve There is no tricuspid stenosis. There is a trace amount of tricuspid regurgitation. Tricuspid regurgitation jet envelope not well defined to measure RV systolic pressure accurately. Pulmonic Valve The pulmonic valve is not well visualized. Great Vessels The aortic root is not well visualized but is probably normal size. The inferior vena cava appeared normal and decreased > 50% with respiration (RAP 5-10 mmHg). Effusions There is no pericardial effusion. : MELISSA WINN Lakshmi
[2020-03-11] MEDS: HEPARIN SOD (PORCINE) 5,000 UNIT/ML 1 ML VIAL SUBCUT SCH ×2 (05:55→15:13)
[2020-03-11 07:03] LABS: HEMATOCRIT 39.3 % (36.0-47.0); HEMOGLOBIN 13.1 g/dL (12.0-15.5); MEAN CORPUSCULAR HEMOGLOBIN 32.8 pg (27.0-33.4); MEAN CORPUSCULAR HGB CONC 33.4 g/dL (32.0-36.0); MEAN CORPUSCULAR VOLUME 98 fl (80-97); PLATELET COUNT 293 10^3/uL (150-450); RED BLOOD COUNT 4.01 10^6/uL (3.72-5.28); RED CELL DISTRIBUTION WIDTH 13.9 % (11.5-14.0); WHITE BLOOD COUNT 9.4 10^3/uL (4.0-10.5)
[2020-03-11 07:23] LABS: ANION GAP 7 (5-19); BLOOD UREA NITROGEN 17 mg/dL (7-20); CALCIUM 9.4 mg/dL (8.4-10.2); CARBON DIOXIDE 27 mmol/L (22-30); CHLORIDE 103 mmol/L (98-107); CHOLESTEROL 231.67 mg/dL (0-200); GLUCOSE 106 mg/dL (75-110); POTASSIUM 4.7 mmol/L (3.6-5.0); TRIGLYCERIDES 179 mg/dL (<150)
[2020-03-11 07:34] LABS: DIRECT LDL 134 mg/dL (<100)
[2020-03-11 07:36] LABS: VLDL CHOLESTEROL 35.8 mg/dL (10-31)
[2020-03-11] MEDS ORDERED: LEVOTHYROXINE SODIUM 0.112 MG TABLET PO SCH (09:00)
[2020-03-11] MEDS ORDERED: CLOPIDOGREL BISULFATE 75 MG TABLET PO SCH (10:00)
[2020-03-11] MEDS ORDERED: FOLIC ACID 1 MG TABLET PO SCH (10:00)
[2020-03-11] MEDS ORDERED: ASCORBIC ACID 500 MG TABLET PO SCH (10:00)
[2020-03-11] MEDS ORDERED: ASPIRIN 81 MG TABLET, ENT COATED PO SCH (10:00)
[2020-03-11] MEDS: FAMOTIDINE 20 MG TABLET PO SCH (10:45)
[2020-03-11] MEDS ORDERED: ACETAMINOPHEN 325 MG TABLET PO PRN ×2 (12:15→12:30)
[2020-03-11 12:24] VITALS: BP 135/67
[2020-03-11] MEDS ORDERED: MONTELUKAST SODIUM 10 MG TABLET PO SCH (22:00)
--- NOTE | 2020-03-12 18:55 | PDOC DISCHARGE SUMMARY ---
Impression - Admit/DC Date/PCP Admission Date/Primary Care Provider: 03/10/20 15:14 SONG VILLELA MD Discharge Date: 03/11/20 - Discharge Diagnosis (1) CVA (cerebral vascular accident) Is this a current diagnosis for this admission?: Yes (2) Hypertension Is this a current diagnosis for this admission?: Yes (3) Hypothyroidism Is this a current diagnosis for this admission?: Yes (4) Obesity (BMI 30.0-34.9) Is this a current diagnosis for this admission?: Yes - Additional Information Resuscitation Status: Do Not Resuscitate Discharge Diet: Cardiac Discharge Activity: Activity As Tolerated, Balance Activity w/Rest, Slowly Increase Activity, Supervised Activity Referrals: SONG VILLELA MD [Primary Care Provider] - (Follow-up within 1 week) Prescriptions: Aspirin [Ecotrin 81 mg EC Tablet] 81 mg PO DAILY #90 tabec Atorvastatin Calcium [Lipitor 80 mg Tablet] 80 mg PO QHS #30 tablet Clopidogrel Bisulfate [Plavix 75 mg Tablet] 75 mg PO DAILY #20 tablet Home Medications: Folic Acid 1 mg PO DAILY 10/07/19 Alendronate Sodium 70 mg PO FR@1000 03/10/20 Ascorbic Acid [Vitamin C 500 mg Tablet] 500 mg PO DAILY 03/10/20 Levothyroxine Sodium [Synthroid 0.112 mg Tablet] 0.112 mg PO Q6AM 03/10/20 Methotrexate Sodium [Rheumatrex 2.5 mg Tablet] 15 mg PO TU@1000 03/10/20 Montelukast Sodium [Singulair 10 mg Tablet] 10 mg PO QHS 03/10/20 Acetaminophen [Tylenol 325 mg Tablet] 650 mg PO Q4HP PRN tablet 03/11/20 Aspirin [Ecotrin 81 mg EC Tablet] 81 mg PO DAILY #90 tabec 03/11/20 Atorvastatin Calcium [Lipitor 80 mg Tablet] 80 mg PO QHS #30 tablet 03/11/20 Clopidogrel Bisulfate [Plavix 75 mg Tablet] 75 mg PO DAILY #20 tablet 03/11/20 History of Present Illiness History of Present Illness: CJ MARIN is a 69 year old female with a past medical history significant for hypertension, hypothyroidism, rheumatoid arthritis, asthma who presented to the emergency department with a complaint of mild slurring of speech, left-sided oral paresthesia, left facial numbness, left upper and lower extremity intermittent numbness with poor coordination with onset prior to going to sleep last night (>18 hours ago). Evaluation in the emergency department revealed acceptable vital signs. Laboratory evaluation was unremarkable with essentially normal CBC, PT/INR, chemistry, and urinalysis. EKG showed normal sinus rhythm with LVH. Head CT revealed mild chronic changes of atrophy and microvascular ischemia without acute findings. Head CTA and neck CTA were benign; although noted to have an aberrant origin of the right subclavian artery. The patient is referred to the hospitalist service for further evaluation and management of the above-stated complaints and findings. Hospital Course Hospital Course: (1) CVA (cerebral vascular accident) CT head negative for acute findings. CTA head benign. CTA neck benign. MRI revealed acute/subacute lacunar infarct to the right thalamus with mild chronic microvascular ischemia. Echocardiogram was benign; LVEF 60% with grade 1 LV diastolic dysfunction. No cardiac source of embolus noted. A1c 5.5%. Triglycerides 179, TChol 231, LDL 134, HDL 60 Patient was admitted to [facility] on continuous cardiac telemetry. Allowed for plan for permissive hypertension; blood pressures now acceptable without antihypertensive therapy. She is placed on daily aspirin and statin therapy. Continue Plavix daily x3 weeks. PT/OT/ST consultation; recommend outpatient therapy services. Cardiac diet. (2) Hypertension Improved. Allowed for permissive hypertension for another 24 hours. IV hydralazine provided, as needed, for SBP>180, DBP>100 Continue Cardiac diet. Not require start of daily antihypertensive therapies. Recommend close follow-up by PCP for further monitoring and management. (3) Hypothyroidism Continue home dose levothyroxin (4) Obesity (BMI 30.0-34.9) Dietary discretion and lifestyle modification encouraged. Cardiac diet. Physical Exam Vital Signs: Temp Pulse Resp BP Pulse Ox 97.6 F 72 15 135/67 H 98 03/11/20 15:36 03/11/20 15:36 03/11/20 15:36 03/11/20 12:01 03/11/20 15:36 Intake & Output 03/11/20 03/12/20 03/13/20 06:59 06:59 06:59 Intake Total 605 Output Total 500 Balance 105 Weight 81.9 kg General appearance: PRESENT: no acute distress, cooperative, obese, well- developed, well-nourished Head exam: PRESENT: atraumatic, normocephalic Eye exam: PRESENT: conjunctiva pink, EOMI, PERRLA. ABSENT: scleral icterus Mouth exam: PRESENT: moist, tongue midline Respiratory exam: PRESENT: clear to auscultation zulema, symmetrical, unlabored. ABSENT: rales, rhonchi, wheezes Cardiovascular exam: PRESENT: RRR, +S1, +S2. ABSENT: diastolic murmur, rubs, systolic murmur Vascular exam: PRESENT: normal capillary refill Extremities exam: PRESENT: full ROM. ABSENT: calf tenderness, clubbing, pedal edema Neurological exam: PRESENT: alert, awake, oriented to person, oriented to place, oriented to time, oriented to situation, CN II-XII grossly intact, motor sensory deficit - Muscle strength 5/5 bilaterally upper and lower extremities; slight ataxia and report of paresthesia to the left side Psychiatric exam: PRESENT: appropriate affect, normal mood. ABSENT: homicidal ideation, suicidal ideation Skin exam: PRESENT: dry, intact, warm. ABSENT: cyanosis, rash Results Laboratory Results: WBC 9.4 10^3/uL (4.0-10.5) 03/11/20 06:03 RBC 4.01 10^6/uL (3.72-5.28) 03/11/20 06:03 Hgb 13.1 g/dL (12.0-15.5) 03/11/20 06:03 Hct 39.3 % (36.0-47.0) 03/11/20 06:03 MCV 98 fl (80-97) H 03/11/20 06:03 MCH 32.8 pg (27.0-33.4) 03/11/20 06:03 MCHC 33.4 g/dL (32.0-36.0) 03/11/20 06:03 RDW 13.9 % (11.5-14.0) 03/11/20 06:03 Plt Count 293 10^3/uL (150-450) 03/11/20 06:03 Lymph % (Auto) 10.7 % (13-45) L 03/10/20 11:20 [place] % (Auto) 5.4 % (3-13) 03/10/20 11:20 Eos % (Auto) 0.9 % (0-6) 03/10/20 11:20 Baso % (Auto) 0.9 % (0-2) 03/10/20 11:20 Absolute Neuts (auto) 7.4 10^3/uL (1.7-8.2) 03/10/20 11:20 Absolute Lymphs (auto) 1.0 10^3/uL (0.5-4.7) 03/10/20 11:20 Absolute Monos (auto) 0.5 10^3/uL (0.1-1.4) 03/10/20 11:20 Absolute Eos (auto) 0.1 10^3/uL (0.0-0.6) 03/10/20 11:20 Absolute Basos (auto) 0.1 10^3/uL (0.0-0.2) 03/10/20 11:20 Seg Neutrophils % 82.1 % (42-78) H 03/10/20 11:20 PT 13.2 SEC (11.4-15.4) 03/10/20 11:20 INR 1.00 03/10/20 11:20 APTT 27.2 SEC (23.5-35.8) 03/10/20 11:20 Sodium 136.6 mmol/L (137-145) L 03/11/20 06:03 Potassium 4.7 mmol/L (3.6-5.0) 03/11/20 06:03 Chloride 103 mmol/L (98-107) 03/11/20 06:03 Carbon Dioxide 27 mmol/L (22-30) 03/11/20 06:03 Anion Gap 7 (5-19) 03/11/20 06:03 BUN 17 mg/dL (7-20) 03/11/20 06:03 Creatinine 0.83 mg/dL (0.52-1.25) 03/11/20 06:03 Est GFR ( Amer) > 60 (>60) 03/11/20 06:03 Est GFR (MDRD) Non-Af > 60 (>60) 03/11/20 06:03 Glucose 106 mg/dL (75-110) 03/11/20 06:03 Hemoglobin A1c % 5.5 % (4.7-6.0) 03/11/20 06:03 Calcium 9.4 mg/dL (8.4-10.2) 03/11/20 06:03 Total Bilirubin 0.7 mg/dL (0.2-1.3) 03/10/20 11:20 Direct Bilirubin 0.0 mg/dL (0.0-0.4) 03/10/20 11:20 Neonat Total Bilirubin Not Reportable 03/10/20 11:20 Neonat Direct Bilirubin Not Reportable 03/10/20 11:20 Neonat Indirect Bili Not Reportable 03/10/20 11:20 AST 36 U/L (14-36) 03/10/20 11:20 ALT 31 U/L (<35) 03/10/20 11:20 Alkaline Phosphatase 97 U/L (38-126) 03/10/20 11:20 Total Protein 7.8 g/dL (6.3-8.2) 03/10/20 11:20 Albumin 4.3 g/dL (3.5-5.0) 03/10/20 11:20 Triglycerides 179 mg/dL (<150) H 03/11/20 06:03 Cholesterol 231.67 mg/dL (0-200) H 03/11/20 06:03 LDL Cholesterol Direct 134 mg/dL (<100) H 03/11/20 06:03 VLDL Cholesterol 35.8 mg/dL (10-31) H 03/11/20 06:03 HDL Cholesterol 60 mg/dL (>40) 03/11/20 06:03 Urine Color YELLOW 03/10/20 11:20 Urine Appearance SLIGHTLY-CLOUDY 03/10/20 11:20 Urine pH 7.0 (5.0-9.0) 03/10/20 11:20 Ur Specific [place] 1.012 03/10/20 11:20 Urine Protein NEGATIVE mg/dL (NEGATIVE) 03/10/20 11:20 Urine Glucose (UA) NEGATIVE mg/dL (NEGATIVE) 03/10/20 11:20 Urine Ketones NEGATIVE mg/dL (NEGATIVE) 03/10/20 11:20 Urine Blood NEGATIVE (NEGATIVE) 03/10/20 11:20 Urine Nitrite NEGATIVE (NEGATIVE) 03/10/20 11:20 Urine Bilirubin NEGATIVE (NEGATIVE) 03/10/20 11:20 Urine Urobilinogen NEGATIVE mg/dL (<2.0) 03/10/20 11:20 Ur Leukocyte Esterase LARGE (NEGATIVE) H 03/10/20 11:20 Urine WBC (Auto) 15 /HPF 03/10/20 11:20 Urine RBC (Auto) 1 /HPF 03/10/20 11:20 Squamous Epi Cells Auto 12 /HPF 03/10/20 11:20 Urine Mucus (Auto) RARE /LPF 03/10/20 11:20 Urine Ascorbic Acid NEGATIVE (NEGATIVE) 03/10/20 11:20 Impressions: Head MRI 03/10/20 00:00 IMPRESSION: Acute/ subacute lacunar infarction in the right thalamus. Mild chronic microvascular ischemia. EVIDENCE OF ACUTE STROKE: Yes RIGHT MCA Head CT 03/10/20 10:59 IMPRESSION: MILD CHRONIC CHANGES OF ATROPHY AND MICROVASCULAR ISCHEMIA. NO ACUTE PROCESS. EVIDENCE OF ACUTE STROKE: NO. Head CTA 03/10/20 12:13 IMPRESSION: NO CTA EVIDENCE OF STENOSIS OR ANEURYSM OF THE [place] OF [place]. Neck CTA 03/10/20 12:13 IMPRESSION: 1. Widely patent right and left common and internal carotid arteries. 2. 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 Plan Plan of Treatment: Patient is discharged home in stable condition. She is advised follow-up with her primary care provider within 1 week. She is instructed to take her medications as prescribed. Continue outpatient PT/OT/ST services. Return to the emergency department as needed for concerning symptoms. Time Spent: Greater than 30 Minutes Stroke Is this a Stroke Patient?: Yes Stroke Pt being discharged on Anti-thrombolytic therapy?: Yes Stroke Pt being discharged on Anti-coagulation therapy?: No Reason(s) for not prescribing Anti-coagulation therapy:: Not indicated Stroke Pt being discharged on Statins?: Yes Acute Heart Failure - Is this a Heart Failure Patient?: No
[2020-03-14] MEDS ORDERED: METHOTREXATE SODIUM 2.5 MG TABLET PO SCH (10:00)
[2020-03-17] MEDS ORDERED: (PENDING PHARMACY ID) (Alendronate Sodium [Alendronate Sodium] 70 MG) PO SCH (10:00)
== END 2020-03-11 16:00 | disposition home or self-care (01) ==
LOC: ER 10:51 → INTOOBSV 15:14 → EH 15:14 → 3W 17:13
PROVIDERS: ADMIT Internal Medicine; ATTEND Internal Medicine
DX: I63.81 Other cerebral infarction due to occlusion or stenosis of small artery (principal); R20.0 Anesthesia of skin; R29.810 Facial weakness; R27.0 Ataxia, unspecified; R47.81 Slurred speech; I10 Essential (primary) hypertension; E03.9 Hypothyroidism, unspecified; E66.9 Obesity, unspecified; M06.9 Rheumatoid arthritis, unspecified; J45.909 Unspecified asthma, uncomplicated; G81.94 Hemiplegia, unspecified affecting left nondominant side; R29.705 NIHSS score 5; Z68.34 Body mass index [BMI] 34.0-34.9, adult; Z79.890 Hormone replacement therapy; Z87.891 Personal history of nicotine dependence; Z66 Do not resuscitate; Z79.51 Long term (current) use of inhaled steroids
CPT/HCPCS: 93005; 99285; 36415 ×2; 85025; 85027; 85610; 85730; 80048; 80053; 81001; 83036; 80061; 93306; 70551; 70450; 70496; 70498; 93010; 97530; 97162; 92523; 97166; A9270 ×10; J1644 ×2; J3490 ×2; G0378